=== PATIENT | female | born 1985 | race Caucasian/White ===

== ENCOUNTER 2024-11-07 20:47 | Emergency (ER) | payer OTHER ==
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
[2024-11-07] MEDS: MORPHINE SULFATE 2 MG/ML SYRINGE IVP ONE (21:27)
[2024-11-07] MEDS: ONDANSETRON 4 MG/2 ML VIAL IVP STA (21:28)
[2024-11-07] MEDS: ACETAMINOPHEN TAB 325 MG TAB PO STA (21:30)
[2024-11-07 21:44] LABS: Appearance,Urine Cloudy (Clear); Bacteria,Urine Rare /hpf; Bilirubin,Urine Negative (Negative); Blood,Urine Small (Negative); Color,Urine Yellow; Glucose,Urine (UA) Negative (Negative); Ketones,Urine 1+ (Negative); Leukocyte Esterase,Urine Small (Negative); Mucus,Urine Many /hpf; Nitrite,Urine Negative (Negative); Protein,Urine Trace (Negative); RBC,Urine 10 /hpf (0-5); Specific Gravity,Urine 1.038 (1.001-1.035); Squamous Epithelial Cell,Urine 13 /hpf (0-4); Urobilinogen,Urine <2.0 mg/dL (<2.0); WBC,Urine 5 /hpf (0-5)
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
[2024-11-08] MEDS: KETOROLAC 15 MG/ML 1 ML VIAL IVP STA (00:17)
[2024-11-08] MEDS: HYDROmorphone 0.5 MG/0.5 ML SYRINGE IVP STA (00:18)
[2024-11-08] MEDS: LIDOCAINE 4% PATCH TOPICAL ONE (00:18)
[2024-11-08 00:41] VITALS: BP 155/89; PULSE 79; RESP 20; TEMP 98
== END 2024-11-08 00:41 | disposition home or self-care (01) ==
LOC: EC 20:47
DX: S20.219A Contusion of unspecified front wall of thorax, initial encounter (principal); R10.12 Left upper quadrant pain; V86.55XA Driver of 3- or 4- wheeled all-terrain vehicle (ATV) injured in nontraffic accident, initial encounter; Y92.410 Unspecified street and highway as the place of occurrence of the external cause; Y93.I9 Activity, other involving external motion
CPT/HCPCS: 81001; 81025; 71260; 74177; 99284; 96374; 96375 ×3; J2405; J2270; J1885; J1171; Q9967

== ENCOUNTER 2024-11-15 16:15 | Emergency (ER) | payer OTHER ==
[2024-11-15 16:27] VITALS: TEMP 97.9
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
[2024-11-15] MEDS: ACETAMINOPHEN TAB 500 MG TAB PO STA (17:44)
[2024-11-15] MEDS: KETOROLAC 15 MG/ML 1 ML VIAL IM STA (17:44)
[2024-11-15] MEDS: HYDROmorphone 1 MG/ML 1 ML SYRINGE IM STA (17:45)
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
[2024-11-15 18:55] VITALS: BP 157/99; PULSE 72; RESP 17
== END 2024-11-15 19:21 | disposition home or self-care (01) ==
LOC: EC 16:15
DX: S22.32XA Fracture of one rib, left side, initial encounter for closed fracture (principal); S62.632A Displaced fracture of distal phalanx of right middle finger, initial encounter for closed fracture; V86.55XA Driver of 3- or 4- wheeled all-terrain vehicle (ATV) injured in nontraffic accident, initial encounter; Y92.410 Unspecified street and highway as the place of occurrence of the external cause
CPT/HCPCS: 71101; 73140; 99283; 96372 ×2; J1171; J1885